=== PATIENT | female | born 1930 | race Caucasian/White ===

== ENCOUNTER 2018-04-01 19:29 | Observation (INO) ==
--- NOTE | 2018-04-01 19:59 | ED ---
HPI General Chief Complaint: Fall Stated Complaint: Fall Time Seen by Provider: 04/01/18 19:39 Source: patient Limitations: no limitations History of Present Illness HPI Narrative: Patient is an 88-year-old female who presents after a fall at home. She states that she was walking in the driveway when she fell onto her face. She does not know if she tripped or slipped prior to the fall. She denies chest pain, dyspnea, back pain, abdominal pain. She is not on blood thinners. complaint: fall Fall from: standing Place fall occurred: home and street Loss of consciousness: unsure Prolonged down time: no Location of injury: head and face Quality: dull Related Data Home Medications Medication Instructions Recorded Confirmed Unable to Obtain Home Meds 04/01/18 04/01/18 Allergies Allergy/AdvReac Type Severity Reaction Status Date / Time No Known Allergies Allergy Verified 04/01/18 21:53 Review of Systems ROS: all other systems reviewed are negative [facility] Medical History Medical History Asthma (Acute) HTN (hypertension) (Acute) Social History Social History Substance History: No History of Abuse Second Hand Smoke Exposure: No Smoking Status: Never smoker How Often Do You Have a Drink Containing Alcohol: Never Recent Travel in [facility] within the Last 8 Weeks: No Recent Out of Country Travel within the Last 8 Weeks: No Exam Narrative Exam Narrative: GENERAL: Elderly female with obvious trauma to the face SKIN: Focused skin assessment warm/dry. HEAD: Normocephalic. Dried blood on much of the face with swelling to most of the face primarily on the right side with extensive bruising. No active hemorrhage seen at this time. No septal hematoma. EYES: Pupils equal and round. No scleral icterus. No injection or drainage. Extraocular movements intact. ENT: Mucous membranes pink and moist. NECK: Trachea midline. No JVD. CARDIOVASCULAR: Regular rate and rhythm. No murmur appreciated. RESPIRATORY: No accessory muscle use. Clear to auscultation. Breath sounds equal bilaterally. GASTROINTESTINAL: Abdomen soft, non-tender, nondistended. Hepatic and splenic margins not palpable. MUSCULOSKELETAL: No obvious deformities. No clubbing. No cyanosis. No edema. NEUROLOGICAL: Awake and alert. No obvious cranial nerve deficits. Motor grossly within normal limits. Normal speech. PSYCHIATRIC: Appropriate mood and affect; insight and judgment normal. Course Initial Documented Vital Signs Pulse Rate 69 04/01/18 19:35 Respiratory Rate 20 04/01/18 19:35 Blood Pressure 153/74 H 04/01/18 19:35 Pulse Oximetry 100 04/01/18 19:35 Last Documented Vital Signs Pulse Rate 70 04/01/18 23:30 Respiratory Rate 18 04/01/18 23:30 Blood Pressure 137/63 04/01/18 23:30 Pulse Oximetry 95 04/01/18 23:30 Sign Out Sign Out Data: Patient Sign Out occurred on 04/01/18 at 20:26. Patient's care was discussed, and care was transferred from Etelvina Mo MD to Ted Bradshaw MD. Sign Out Comment: Imaging and labs pending. Dispo per results/re-eval. Last updated by Etelvina Mo MD at 04/01/18 20:22 Post-Handoff Eval: Reviewed findings. Reviewed CT findings with family. Spoke with Dr. Jasso, with OMFS. Fractures likely nonoperative. Can follow-up as an outpatient. Will get CT scans on CD. Patient still with significant pain, given age, need for opioid analgesics, pre-existing gait instability, would recommend observation and pain control, possible PT evaluation, likely discharge in a.m. if doing well. Medical Decision Making MDM Narrative Medical decision making narrative: Is an 88-year-old female who presents after she fell onto her face. He is obvious trauma to her face is neurologically intact. CTs pending at time of checkup. Medical Screen Exam Complete: Yes Emergency Medical Condition: Yes Lab Data Result diagrams: 04/01/18 19:54 04/01/18 19:54 Lab Results 04/01/18 04/01/18 04/01/18 Range/Units 19:54 19:54 19:54 WBC 7.2 (4.0-11.0) th/mm3 RBC 3.88 L (4.00-5.30) mil/mm3 Hgb 12.3 (11.6-15.3) gm/dL Hct 37.2 (35.0-46.0) % MCV 95.7 (80.0-100.0) fL MCH 31.7 (27.0-34.0) pg MCHC 33.1 (32.0-36.0) % RDW 13.3 (11.6-17.2) % Plt Count 258 (150-450) th/mm3 MPV 7.3 (7.0-11.0) fL Neut % (Auto) 64.7 (16.0-70.0) % Lymph % (Auto) 23.8 (9.0-44.0) % [place] % (Auto) 9.1 H (0.0-8.0) % Eos % (Auto) 1.5 (0.0-4.0) % Baso % (Auto) 0.9 (0.0-2.0) % Neut # (Auto) 4.7 (1.8-7.7) th/mm3 Lymph # (Auto) 1.7 (1.0-4.8) th/mm3 [place] # (Auto) 0.7 (0.0-0.9) th/mm3 Eos # (Auto) 0.1 (0.0-0.4) th/mm3 Baso # (Auto) 0.1 (0.0-0.2) th/mm3 WBC Differential . Differential Comment Auto diff final PT 10.3 (9.8-11.6) sec INR 1.0 Ratio APTT 21.9 L (24.3-30.1) sec Sodium 139 (136-145) meq/L Potassium 3.9 (3.5-5.1) meq/L Chloride 104 (98-107) meq/L Carbon Dioxide 23.7 (21.0-32.0) meq/L Anion Gap 11 (5-15) meq/L BUN 33 H (7-18) mg/dL Creatinine 0.78 (0.50-1.00) mg/dL Estimated GFR 70 L (>89) mL/min Random Glucose 102 (74-106) mg/dL Calcium 8.7 (8.5-10.1) mg/dL Troponin I Less than 0.02 L (0.02-0.05) ng/mL Urine Color (Yellw/Straw) Urine Clarity (Clear) Urine pH (5.0-8.5) Ur Specific [place] (1.002-1.035) Urine Protein (Neg-Trace) mg/dL Urine Glucose (UA) (Negative) mg/dL Urine Ketones (Negative) mg/dL Urine Occult Blood (Negative) Urine Nitrate (Negative) Urine Bilirubin (Negative) Urine Urobilinogen (Less than 2) mg/dL Ur Leukocyte Esterase (Negative) Urine RBC (0-3) /hpf Urine WBC (0-5) /hpf Ur Squamous Epith Cells (0-5) /hpf Urine Bacteria (None) /hpf Micro UA Comment Ur Microscopic Review Urine Culture Comments Blood Type Blood Type Recheck Antibody Screen 04/01/18 04/01/18 Range/Units 19:54 21:38 WBC (4.0-11.0) th/mm3 RBC (4.00-5.30) mil/mm3 Hgb (11.6-15.3) gm/dL Hct (35.0-46.0) % MCV (80.0-100.0) fL MCH (27.0-34.0) pg MCHC (32.0-36.0) % RDW (11.6-17.2) % Plt Count (150-450) th/mm3 MPV (7.0-11.0) fL Neut % (Auto) (16.0-70.0) % Lymph % (Auto) (9.0-44.0) % [place] % (Auto) (0.0-8.0) % Eos % (Auto) (0.0-4.0) % Baso % (Auto) (0.0-2.0) % Neut # (Auto) (1.8-7.7) th/mm3 Lymph # (Auto) (1.0-4.8) th/mm3 [place] # (Auto) (0.0-0.9) th/mm3 Eos # (Auto) (0.0-0.4) th/mm3 Baso # (Auto) (0.0-0.2) th/mm3 WBC Differential Differential Comment PT (9.8-11.6) sec INR Ratio APTT (24.3-30.1) sec Sodium (136-145) meq/L Potassium (3.5-5.1) meq/L Chloride (98-107) meq/L Carbon Dioxide (21.0-32.0) meq/L Anion Gap (5-15) meq/L BUN (7-18) mg/dL Creatinine (0.50-1.00) mg/dL Estimated GFR (>89) mL/min Random Glucose (74-106) mg/dL Calcium (8.5-10.1) mg/dL Troponin I (0.02-0.05) ng/mL Urine Color Yellow (Yellw/Straw) Urine Clarity Clear (Clear) Urine pH 7.0 (5.0-8.5) Ur Specific [place] 1.015 (1.002-1.035) Urine Protein Negative (Neg-Trace) mg/dL Urine Glucose (UA) Negative (Negative) mg/dL Urine Ketones Trace H (Negative) mg/dL Urine Occult Blood Negative (Negative) Urine Nitrate Positive H (Negative) Urine Bilirubin Negative (Negative) Urine Urobilinogen Less than 2 (Less than 2) mg/dL Ur Leukocyte Esterase Negative (Negative) Urine RBC 1 (0-3) /hpf Urine WBC 1 (0-5) /hpf Ur Squamous Epith Cells <1 (0-5) /hpf Urine Bacteria Many H (None) /hpf Micro UA Comment Cath-culture ind Ur Microscopic Review Not Reportable Urine Culture Comments Cath-cult indicated Blood Type O Positive Blood Type Recheck Antibody Screen Negative Imaging Data Radiologist's impression: Cervical Spine CT 04/01/18 19:44 CONCLUSION: 1. Intact cervical spine. 2. Degenerative changes as above. Chest X-Ray 04/01/18 19:44 CONCLUSION: No acute abnormality demonstrated. Suspected chronic bilateral rotator cuff tears. Face CT 04/01/18 19:44 CONCLUSION: 1. Comminuted and mildly depressed/rightward deviated fracturing of the nose. 2. Nondisplaced fracturing of the left maxilla. 3. Depressed and comminuted fracture of the anterior wall of the right maxillary air cell. Nondisplaced fracturing of the posterior wall. 4. Comminuted, minimally displaced fracturing of the inferior wall the right orbit. Head CT 04/01/18 19:44 CONCLUSION: 1. No bleed or other acute intracranial abnormality. 2. Chronic white matter changes. . Pelvis X-Ray 04/01/18 19:44 CONCLUSION: Intact pelvis. Discharge Plan Discharge Disposition Patient Disposition: 30 Still Patient Physicians Team ED Provider: Ted Bradshaw Primary Care Provider: UNKNOWN, Rxs /Orders / Referrals /Forms Prescriptions: No Action Unable to Obtain Home Meds RF: 0 Discharge Interventions Interventions: Vital Signs Last Done: 04/01/18 23:30 Status ED Status: With Doctor
[2018-04-01 20:06] LABS: Baso # (Auto) 0.1 th/mm3 (0.0-0.2); Baso % (Auto) 0.9 % (0.0-2.0); Eos # (Auto) 0.1 th/mm3 (0.0-0.4); Eos % (Auto) 1.5 % (0.0-4.0); Hematocrit 37.2 % (35.0-46.0); Hemoglobin 12.3 gm/dL (11.6-15.3); Lymph # (Auto) 1.7 th/mm3 (1.0-4.8); Lymph % (Auto) 23.8 % (9.0-44.0); Mean Corpuscular HGB Conc 33.1 % (32.0-36.0); Mean Corpuscular Hemoglobin 31.7 pg (27.0-34.0); Mean Corpuscular Volume 95.7 fL (80.0-100.0); Mean Platelet Volume 7.3 fL (7.0-11.0); Mono # (Auto) 0.7 th/mm3 (0.0-0.9); Mono % (Auto) 9.1 % (0.0-8.0); Neut # (Auto) 4.7 th/mm3 (1.8-7.7); Neut % (Auto) 64.7 % (16.0-70.0); Platelet Count 258 th/mm3 (150-450); Red Blood Count 3.88 mil/mm3 (4.00-5.30); Red Cell Distribution Width 13.3 % (11.6-17.2); White Blood Count 7.2 th/mm3 (4.0-11.0)
--- NOTE | 2018-04-01 20:11 | XR ---
EXAM DATE: 04/01/2018 8:04 PM EDT AGE/SEX: 88 years / Female INDICATIONS: Evaluate chest for trauma, fell CLINICAL DATA: This is the patient's initial encounter. Patient reports that signs and symptoms have been present for 1 day and indicates a pain score of Nonresponsive. MEDICAL/SURGICAL HISTORY: Non-responsive. Non-responsive. COMPARISON: No prior exams available for comparison. FINDINGS: A single AP view of the chest demonstrates the lungs to be symmetrically aerated without evidence of mass, infiltrate or effusion. The cardiomediastinal contours are unremarkable. Osseous structures a re grossly intact. Chronic bilateral rotator cuff tears are suspected with narrowing of the subacromial spaces noted. CONCLUSION: No acute abnormality demonstrated. Suspected chronic bilateral rotator cuff tears. Electronically signed by: Art Grove MD 04/01/2018 8:09 PM EDT
--- NOTE | 2018-04-01 20:13 | XR ---
EXAM DATE: 04/01/2018 8:06 PM EDT AGE/SEX: 88 years / Female INDICATIONS: Evaluate pelvis for trauma, fell CLINICAL DATA: This is the patient's initial encounter. Patient reports that signs and symptoms have been present for 1 day and indicates a pain score of Nonresponsive. MEDICAL/SURGICAL HISTORY: Non-responsive. Non-responsive. COMPARISON: No prior exams available for comparison. FINDINGS: The pelvis is intact and has normal morphology. 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 Also mild osteoarthritis of the pubic symphysis and bilateral sacroiliac joints. CONCLUSION: Intact pelvis. Electronically signed by: Art Grove MD 04/01/2018 8:11 PM EDT
[2018-04-01 20:14] LABS: Activated Partial Thrombo Time 21.9 sec (24.3-30.1); Prothrombin Time 10.3 sec (9.8-11.6)
[2018-04-01 20:29] LABS: Anion Gap 11 meq/L (5-15); Blood Urea Nitrogen 33 mg/dL (7-18); Calcium 8.7 mg/dL (8.5-10.1); Carbon Dioxide 23.7 meq/L (21.0-32.0); Chloride 104 meq/L (98-107); Glomerular Filtration Rate 70 mL/min (>89); Glucose,Random 102 mg/dL (74-106); Potassium 3.9 meq/L (3.5-5.1); Sodium 139 meq/L (136-145)
--- NOTE | 2018-04-01 20:29 | CT ---
EXAM DATE: 04/01/2018 8:21 PM EDT AGE/SEX: 88 years / Female INDICATIONS: Fall facial abrasions CLINICAL DATA: This is the patient's initial encounter. Patient reports that signs and symptoms have been present for 1 day and indicates a pain score of 6/10. MEDICAL/SURGICAL HISTORY: Asthma. None. RADIATION DOSE: 21.96 CTDI (mGy) COMPARISON: No prior exams available for comparison. TECHNIQUE: Contiguous images in the axial and coronal planes were obtained using helical multirow de tector technique. Using automated exposure control and adjustment of the mA and/or kV according to p atient size, radiation dose was kept as low as reasonably achievable to obtain optimal diagnostic marlee lity images. DICOM format image data is available electronically for review and comparison. FINDINGS: There is a comminuted, mildly depressed fracturing of the nose. The nose is slightly deviated to the right. There is a fracture of the left side of the maxilla, just lateral to the anterior process and does ex tend into the anterior wall of the left maxillary sinus, all nondisplaced. Comminuted and depressed fracturing seen of the anterior wall of the right maxillary sinus. There is nondisplaced fracturing of the posterior wall. There is comminuted but minimally displaced fracturing of the inferior wall the right orbit. No extra ocular muscle entrapment. There is blood in the right maxillary air cell. CONCLUSION: 1. Comminuted and mildly depressed/rightward deviated fracturing of the nose. 2. Nondisplaced fracturing of the left maxilla. 3. Depressed and comminuted fracture of the anterior wall of the right maxillary air cell. Nondispla abida fracturing of the posterior wall. 4. Comminuted, minimally displaced fracturing of the inferior wall the right orbit. Electronically signed by: Art Grove MD 04/01/2018 8:28 PM EDT
--- NOTE | 2018-04-01 20:31 | CT ---
EXAM DATE: 04/01/2018 8:12 PM EDT AGE/SEX: 88 years / Female INDICATIONS: Fall facial abrasions CLINICAL DATA: This is the patient's initial encounter. Patient reports that signs and symptoms have been present for 1 day and indicates a pain score of 7/10. MEDICAL/SURGICAL HISTORY: Asthma. None. RADIATION DOSE: 56.35 CTDI (mGy) COMPARISON: No prior exams available for comparison. TECHNIQUE: CT of the head without contrast. Using automated exposure control and adjustment of the mA and/or kV according to patient size, radiation dose was kept as low as reasonably achievable to ob tain optimal diagnostic quality images. DICOM format image data is available electronically for revi ew and comparison. FINDINGS: Cerebrum: The ventricles are normal for age. No evidence of midline shift, mass lesion, hemorrhage or acute infarction. No extraaxial fluid collections are seen. There is chronic low-attenuation in t he periventricular white matter. Posterior Fossa: The cerebellum and brainstem are intact. The 4th ventricle is midline. The cerebe llopontine angle is unremarkable. Extracranial: The visualized portion of the orbits is intact. Skull: The calvaria is intact. No evidence of skull fracture. CONCLUSION: 1. No bleed or other acute intracranial abnormality. 2. Chronic white matter changes. . Electronically signed by: Art Grove MD 04/01/2018 8:29 PM EDT
--- NOTE | 2018-04-01 20:32 | CT ---
EXAM DATE: 04/01/2018 8:18 PM EDT AGE/SEX: 88 years / Female INDICATIONS: Fall facial abrasions CLINICAL DATA: This is the patient's initial encounter. Patient reports that signs and symptoms have been present for 1 day and indicates a pain score of 6/10. MEDICAL/SURGICAL HISTORY: Asthma. . RADIATION DOSE: 15.1 CTDI (mGy) COMPARISON: No prior exams available for comparison. TECHNIQUE: Contiguous axial images were obtained using helical multirow detector technique. The vol umetric data was post-processed with multiplanar reconstruction in oblique axial, sagittal, and coron al planes. Using automated exposure control and adjustment of the mA and/or kV according to patient s ize, radiation dose was kept as low as reasonably achievable to obtain optimal diagnostic quality geo ges. DICOM format image data is available electronically for review and comparison. FINDINGS: Cervical spine alignment is within normal limits. Vertebral bodies have normal height. No cortical br eak or trabecular disruption. Prevertebral soft tissues are within normal limits. There is moderate uncovertebral and facet osteoarthritis throughout. There is multilevel disc space n arrowing, severe at C5/C6, moderate to severe at C3/C4 and C4/C5 and mild at the other levels. CONCLUSION: 1. Intact cervical spine. 2. Degenerative changes as above. Electronically signed by: Art Grove MD 04/01/2018 8:31 PM EDT
[2018-04-01 21:53] LABS: Bacteria,Urine Many /hpf; Bilirubin,Urine Negative (Negative); Clarity,Urine Clear (Clear); Color,Urine Yellow (Yellw/Straw); Glucose,Urine (UA) Negative (Negative); Leukocyte Esterase,Urine Negative (Negative); Nitrite,Urine Positive (Negative); Specific Gravity,Urine 1.015 (1.002-1.035); Squamous Epithelial Cell,Urine <1 /hpf (0-5)
[2018-04-01] MEDS ORDERED: Morphine Inj 4 MG/ML Vial IV.PUSH ONE (21:54)
[2018-04-01] MEDS ORDERED: Acetaminophen 325 MG Tablet PO PRN (23:38)
[2018-04-02] MEDS ORDERED: Heparin - SQ 10,000 UNITS/ML Vial SQ SCH
--- NOTE | 2018-04-02 00:43 | P.HP ---
History of Present Illness Service: [facility] Primary Care Physician: UNKNOWN History of Present Illness: 88-year-old female with a past medical history significant for asthma and hypertension presents to the emergency department for evaluation of a fall. The patient was walking to dinner when she lost her footing on uneven ground and fell directly onto her face. There is a questionable period of a few seconds of loss of consciousness. No seizure-like activity. The fall was witnessed by her family. The patient denies any preceding dizziness or lightheadedness. No chest pain or shortness of breath. No abdominal pain. No nausea/vomiting/diarrhea. No fevers/chills. No lateralizing signs/symptoms. No weakness. 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 - Medical History Medical History: Medical History (Last Reviewed 04/02/18 @ 00:19 by Lili Foote MD) Asthma Fall HTN (hypertension) - Surgical History Surgical History: Surgical History (Last Updated 04/02/18 @ 00:19 by Lili Foote MD) No history of previous surgery - Family History Family History: Family History (Last Updated 04/02/18 @ 00:19 by Lili Foote MD) Other Coronary artery disease - Tobacco History Second Hand Smoke Exposure: No Tobacco Use In Past 30 Days: No Smoking Status: Never smoker - Alcohol History How Often Do You Have a Drink Containing Alcohol: Never - Substance Use History Substance History: No History of Abuse - Travel History Recent Travel in the [place] Within the Last 8 Weeks: No Recent Travel Out of the Country Within the Last 8 Weeks: No - Immunization History Tetanus Immunization: <5 Years Hx Influenza Vaccine This Season: Unable to Assess Medications and Allergies Active Medications: Active Medications Acetaminophen (Tylenol) 650 mg PO Q4H PRN PRN Reason: Temp > 100.4 Heparin Sodium (Porcine) (Heparin Inj) 5,000 units SQ Q8H [place] Morphine Sulfate (Morphine Inj) 4 mg IV.PUSH Q4H PRN PRN Reason: pain 6-10 Ondansetron HCl (Zofran Inj) 4 mg IV.PUSH Q6H PRN PRN Reason: NAUSEA OR VOMITING Sodium Chloride (Ns Flush) 2 ml IV.FLUSH PRN PRN PRN Reason: FLUSH AFTER USING IV ACCESS Allergies Allergy/AdvReac Type Severity Reaction Status Date / Time No Known Allergies Allergy Verified 04/01/18 21:53 Home Medications Medication Instructions Recorded Confirmed Type Unable to Obtain Home Meds 04/01/18 04/01/18 History Exam Vital signs: Vital Signs 04/01/18 19:35 04/01/18 23:30 Pulse Rate 69 70 Respiratory Rate 20 18 Blood Pressure 153/74 H 137/63 Pulse Oximetry 100 95 Intake & Output 04/01/18 04/01/18 04/02/18 06:59 18:59 06:59 Weight 45.359 kg Narrative: Gen.: No acute distress Head: Normocephalic. Right side of patient's face exquisitely tender and swollen with blood encrusted nares. EENT: Pupils equal round and reactive to light. Nose without drainage. Airway intact. Throat without injection. Cardiovascular: Regular rate and rhythm. No murmurs, rubs or gallops. Respiratory: Lungs clear to auscultation bilaterally. No wheezes or rhonchi. Abdomen: Soft, nontender, nondistended. No peritoneal signs. Musculoskeletal: No gross deformities. No edema. Skin: No obvious rashes or erythema. Neuro: Sensory and motor grossly intact. Cranial nerves II through XII grossly intact. Results - Labs CBC & Chem 7: 04/01/18 19:54 04/01/18 19:54 Labs: Laboratory Results - last 24 hr 04/01/18 04/01/18 04/01/18 19:54 19:54 19:54 WBC 7.2 RBC 3.88 L Hgb 12.3 Hct 37.2 MCV 95.7 MCH 31.7 MCHC 33.1 RDW 13.3 Plt Count 258 MPV 7.3 Neut % (Auto) 64.7 Lymph % (Auto) 23.8 [place] % (Auto) 9.1 H Eos % (Auto) 1.5 Baso % (Auto) 0.9 Neut # (Auto) 4.7 Lymph # (Auto) 1.7 [place] # (Auto) 0.7 Eos # (Auto) 0.1 Baso # (Auto) 0.1 WBC Differential . Differential Comment Auto diff final PT 10.3 INR 1.0 APTT 21.9 L Sodium 139 Potassium 3.9 Chloride 104 Carbon Dioxide 23.7 Anion Gap 11 BUN 33 H Creatinine 0.78 Estimated GFR 70 L Random Glucose 102 Calcium 8.7 Troponin I Less than 0.02 L Urine Color Urine Clarity Urine pH Ur Specific [place] Urine Protein Urine Glucose (UA) Urine Ketones Urine Occult Blood Urine Nitrate Urine Bilirubin Urine Urobilinogen Ur Leukocyte Esterase Urine RBC Urine WBC Ur Squamous Epith Cells Urine Bacteria Micro UA Comment Ur Microscopic Review Urine Culture Comments Blood Type Blood Type Recheck Antibody Screen 04/01/18 04/01/18 19:54 21:38 WBC RBC Hgb Hct MCV MCH MCHC RDW Plt Count MPV Neut % (Auto) Lymph % (Auto) [place] % (Auto) Eos % (Auto) Baso % (Auto) Neut # (Auto) Lymph # (Auto) [place] # (Auto) Eos # (Auto) Baso # (Auto) WBC Differential Differential Comment PT INR APTT Sodium Potassium Chloride Carbon Dioxide Anion Gap BUN Creatinine Estimated GFR Random Glucose Calcium Troponin I Urine Color Yellow Urine Clarity Clear Urine pH 7.0 Ur Specific [place] 1.015 Urine Protein Negative Urine Glucose (UA) Negative Urine Ketones Trace H Urine Occult Blood Negative Urine Nitrate Positive H Urine Bilirubin Negative Urine Urobilinogen Less than 2 Ur Leukocyte Esterase Negative Urine RBC 1 Urine WBC 1 Ur Squamous Epith Cells <1 Urine Bacteria Many H Micro UA Comment Cath-culture ind Ur Microscopic Review Not Reportable Urine Culture Comments Cath-cult indicated Blood Type O Positive Blood Type Recheck Antibody Screen Negative - Imaging Impressions Cervical Spine CT 04/01/18 19:44 CONCLUSION: 1. Intact cervical spine. 2. Degenerative changes as above. Chest X-Ray 04/01/18 19:44 CONCLUSION: No acute abnormality demonstrated. Suspected chronic bilateral rotator cuff tears. Face CT 04/01/18 19:44 CONCLUSION: 1. Comminuted and mildly depressed/rightward deviated fracturing of the nose. 2. Nondisplaced fracturing of the left maxilla. 3. Depressed and comminuted fracture of the anterior wall of the right maxillary air cell. Nondisplaced fracturing of the posterior wall. 4. Comminuted, minimally displaced fracturing of the inferior wall the right orbit. Head CT 04/01/18 19:44 CONCLUSION: 1. No bleed or other acute intracranial abnormality. 2. Chronic white matter changes. . Pelvis X-Ray 04/01/18 19:44 CONCLUSION: Intact pelvis. Caprini VTE Risk Assessment Caprini VTE Risk Assessment: Moderate/High Risk (score >= 2) Caprini Risk Assessment Model: Point Value = 1 Point Value = 2 Point Value = 3 Point Value = 5 Age 41-60 Minor surgery BMI > 25 kg/m2 Swollen legs Varicose veins or History of unexplained or recurrent spontaneous Oral contraceptives or hormone replacement Sepsis (< 1 month) Serious lung disease, including pneumonia (< 1 month) Abnormal pulmonary function Acute myocardial infarction Congestive heart failure (< 1 month) History of inflammatory bowel disease Medical patient at bed rest Age 61-74 Arthroscopic surgery Major open surgery (> 45 min) Laparoscopic surgery (> 45 min) Malignancy Confined to bed (> 72 hours) Immobilizing plaster cast Central venous access Age >= 75 History of VTE Family history of VTE Factor V Leiden Prothrombin [id number] Lupus anticoagulant Anticardiolipin antibodies Elevated serum homocysteine Heparin-induced thrombocytopenia Other congenital or acquired thrombophilia Stroke (< 1 month) Elective arthroplasty Hip, pelvis, or leg fracture Acute spinal cord injury (< 1 month) Prophylaxis Regimen: Total Risk Factor Score Risk Level Prophylaxis Regimen 0-1 Low Early ambulation 2 Moderate Order ONE of the following: *Sequential Compression Device (SCD) *Heparin 5000 units SQ BID 3-4 Higher Order ONE of the following medications: *Heparin 5000 units SQ TID *Enoxaparin/Lovenox 40 mg SQ daily (WT < 150 kg, CrCl > 30 mL/min) *Enoxaparin/Lovenox 30 mg SQ daily (WT < 150 kg, CrCl > 10-29 mL/min) *Enoxaparin/Lovenox 30 mg SQ BID (WT < 150 kg, CrCl > 30 mL/min) AND/OR *Sequential Compression Device (SCD) 5 or more Highest Order ONE of the following medications: *Heparin 5000 units SQ TID (Preferred with Epidurals) *Enoxaparin/Lovenox 40 mg SQ daily (WT < 150 kg, CrCl > 30 mL/min) *Enoxaparin/Lovenox 30 mg SQ daily (WT < 150 kg, CrCl > 10-29 mL/min) *Enoxaparin/Lovenox 30 mg SQ BID (WT < 150 kg, CrCl > 30 mL/min) AND *Sequential Compression Device (SCD) Assessment and Plan - Plan Assessment/plan: 1. Multiple facial fractures Face CT significant for comminuted deviated fracture of the nose, nondisplaced fracture of the left maxilla, depressed and comminuted fracture of the anterior wall of the right maxillary air cell and nondisplaced fracturing of the posterior wall with a comminuted minimally displaced fracturing of the anterior wall of the right orbit. OMFS consulted, appreciate assistance Morphine for pain 2. Hypertension Continue home amlodipine 3. Depression/anxiety Continue home medication FEN N.p.o. until seen by OMFS Electrolytes: Urine replete as needed NS at 70 cc/hour Holding pharmacologic anticoagulation until cleared by OMFS
[2018-04-02 01:09] VITALS: RESP 16
[2018-04-02] MEDS: Morphine Inj 4 MG/ML Vial IV.PUSH PRN ×3 (01:23→15:45)
[2018-04-02] MEDS: Sod Chloride 0.9% Inj 1,000 ML IV.CONT SCH ×2 (01:23→15:50)
[2018-04-02 07:50] LABS: Baso % (Auto) 0.5 % (0.0-2.0); Eos % (Auto) 0.1 % (0.0-4.0); Hematocrit 31.9 % (35.0-46.0); Hemoglobin 10.8 gm/dL (11.6-15.3); Lymph % (Auto) 11.9 % (9.0-44.0); Mean Corpuscular HGB Conc 33.7 % (32.0-36.0); Mean Corpuscular Hemoglobin 32.3 pg (27.0-34.0); Mean Corpuscular Volume 95.8 fL (80.0-100.0); Mean Platelet Volume 7.6 fL (7.0-11.0); Mono # (Auto) 0.6 th/mm3 (0.0-0.9); Mono % (Auto) 6.9 % (0.0-8.0); Neut # (Auto) 6.9 th/mm3 (1.8-7.7); Neut % (Auto) 80.6 % (16.0-70.0); Platelet Count 225 th/mm3 (150-450); Red Blood Count 3.33 mil/mm3 (4.00-5.30); Red Cell Distribution Width 13.3 % (11.6-17.2); White Blood Count 8.5 th/mm3 (4.0-11.0)
[2018-04-02 08:18] LABS: Calcium 8.2 mg/dL (8.5-10.1); Carbon Dioxide 26.7 meq/L (21.0-32.0); Potassium 4.4 meq/L (3.5-5.1)
[2018-04-02] MEDS ORDERED: amLODIPine 5 MG Tablet PO SCH (09:15)
[2018-04-02] MEDS ORDERED: Citalopram 20 MG Tablet PO SCH (09:15)
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
--- NOTE | 2018-04-02 15:57 | P.CON ---
History of Present Illness Service: Oral & Maxillofacial Surgery Consult date: 04/02/18 Requesting Physician: Abhishek Edouard Reason for Consult: Multiple facial fractures Primary Care Provider: Jerry Cardoza MD Chief Complaint: Facial pain after fall History of Present Illness: 88-year-old female with a history of hypertension and asthma presents to [facility] following mechanical fall. Patient reports that she tripped on the driveway at a relative's house in [place] and struck the right side of her face. She is unsure if she had a loss of consciousness at the time. Currently she denies any changes in her vision, pain with ocular movements, changes in her occlusion, difficulty breathing through her nose. She reports discomfort in the right malar region and infraorbital regions. Review of Systems Constitutional: Denies chills, Denies fever(s) Eyes: Denies blurry vision, Denies change in vision, Denies double vision, Denies loss of vision Ears, Nose, Mouth, and Throat: Reports dental pain, Reports facial pain, Reports mouth pain, Reports nasal discharge, Reports nasal trauma, Reports nose pain, Reports sinus pain, Denies difficulty swallowing, Denies nasal obstruction , Denies tongue swelling Cardiovascular: Denies chest pain Respiratory: Denies shortness of breath PMFSH - History History Provided By: Patient, Family Member - Medical History Medical History: Medical History (Last Reviewed 04/02/18 @ 09:25 by Nakia Thurman) Asthma Fall HTN (hypertension) - Surgical History Surgical History: Surgical History (Last Reviewed 04/02/18 @ 09:25 by Nakia Thurman) No history of previous surgery - Family History Family History: Family History (Last Reviewed 04/02/18 @ 09:25 by Nakia Thurman) Other Coronary artery disease - Tobacco History Second Hand Smoke Exposure: No Tobacco Use In Past 30 Days: No Smoking Status: Never smoker - Alcohol History How Often Do You Have a Drink Containing Alcohol: Never - Substance Use History Substance History: No History of Abuse - Travel History Recent Travel in the [place] Within the Last 8 Weeks: No Recent Travel Out of the Country Within the Last 8 Weeks: No - Immunization History Tetanus Immunization: <5 Years Hx Influenza Vaccine This Season: Unable to Assess Medications and Allergies Active Medications: Active Medications Acetaminophen (Tylenol) 650 mg PO Q4H PRN PRN Reason: Temp > 100.4 Amlodipine Besylate (Norvasc) 2.5 mg PO DAILY [facility] Last Admin: 04/02/18 11:27 Dose: 2.5 mg Citalopram Hydrobromide (Celexa) 20 mg PO DAILY [facility] Last Admin: 04/02/18 11:27 Dose: 20 mg Clonazepam (Klonopin) 0.5 mg PO DAILY [facility] Sodium Chloride (Ns Inj) 1,000 mls @ 70 mls/hr IV.CONT .[id number] [facility] Last Admin: 04/02/18 01:23 Dose: 70 mls/hr Miscellaneous (Pill Splitter) 1 each OTHER UNSCH [facility] Morphine Sulfate (Morphine Inj) 4 mg IV.PUSH Q4H PRN PRN Reason: pain 6-10 Last Admin: 04/02/18 06:21 Dose: 4 mg Ondansetron HCl (Zofran Inj) 4 mg IV.PUSH Q6H PRN PRN Reason: NAUSEA OR VOMITING Sodium Chloride (Ns Flush) 2 ml IV.FLUSH PRN PRN PRN Reason: FLUSH AFTER USING IV ACCESS Allergies Allergy/AdvReac Type Severity Reaction Status Date / Time No Known Allergies Allergy Verified 04/01/18 21:53 Home Medications Medication Instructions Recorded Confirmed Type amlodipine 2.5 mg PO DAILY 04/02/18 04/02/18 History citalopram 20 mg PO DAILY 04/02/18 04/02/18 History clonazepam 0.5 mg PO DAILY 04/02/18 04/02/18 History montelukast 10 mg PO QPM 04/02/18 04/02/18 History Physical Exam Vital signs: Vital Signs 04/01/18 19:35 04/01/18 23:30 04/02/18 00:00 Temperature 97.9 F Pulse Rate 69 70 69 Respiratory Rate 20 18 16 Blood Pressure 153/74 H 137/63 170/73 H Pulse Oximetry 100 95 95 04/02/18 03:43 04/02/18 08:00 04/02/18 08:28 Temperature 97.6 F 98.3 F Pulse Rate 81 63 Respiratory Rate 16 16 Blood Pressure 171/68 H 136/63 Pulse Oximetry 95 94 L 97 04/02/18 12:00 Temperature 98.3 F Pulse Rate 74 Respiratory Rate 16 Blood Pressure 140/65 Pulse Oximetry 92 L Intake & Output 04/01/18 04/02/1804/02/18 18:59 06:59 18:59 Intake Total 420 / 420 Output Total 250 / 250 Balance 170 / 170 Weight 45.359 kg Intake: Other 420 / 420 Output: Urine Amount (Catheter) 250 / 250 Indwelling Urethral Catheter 250 / 250 Other: Other Intake Source Saline Solution Weight On Admission 45.36 kg Narrative: General: Elderly female, well-developed, in no apparent distress. Neurological: Alert, oriented, in NAD. CNV and CNVII intact bilaterally. HEENT: Head/Face: Right sided facial edema. Multiple scattered abrasions including dorsum of nose, right mental region, and right malar region. Scalp nonboggy with no palpable step-offs or deformities. Right periorbital ecchymosis. Midface stable. No palpable step-offs along inferior mandibular border. Eyes/Orbits: PERRL. EOMI. Right subconjunctival hemorrhage Nose: External nose is rotated with mild crepitus over the nasal bridge. No septal hematoma. No rhinorrhea or epistaxis. Hemorrhagic crusting in the bilateral nares. TMJ/Mandible: LIGIA > 4cm. Occlusion stable and repeatable. Class I occlusion. Oral Cavity/Oropharynx: Ecchymosis of the right maxillary vestibule. Laceration between teeth #9 and #10 with grade II mobility of teeth #8 and #9. Mandibular partial denture in place. Leroy class II fracture of tooth #9. Mucosa pink and well hydrated. Floor of mouth soft. Remainder of dentition is intact. Neck: Supple without cervical LAD or thyromegaly. Trachea midline. Edema of the right neck, non-tender to palpation. Cardiovascular: Regular rate Pulmonary: Normal work of breathing on room air. Extremities: Warm, well perfused. - Additional findings Additional findings: CT Face from 04/01/18 displays right anterior and posterior wall maxillary fractures, displaced with complete opacification of the right maxillary sinus, presumably from blood. Right inferior orbital rim fracture with minimal displacement. Nasal bone fractures. - Urinary Catheter Management Indwelling Urethral Catheter Cath placed during this visit: yes Reason for continuing: Chronic Urinary Retention Insertion date: 04/02/18 Insertion time: 03:19 Assessment and Plan - Assessment (1) Facial fracture due to fall Code(s): S02.92XA - Unspecified fracture of facial bones, initial encounter for closed fracture; W19.XXXA - Unspecified fall, initial encounter Status: Acute - Plan 88-year-old female with history of hypertension and asthma who presents with multiple facial fractures secondary to mechanical fall. Will manage fractures nonoperatively at this point. Patient may benefit from correction of nasal bone fractures if cosmetic or functional deformity remains once edema has decreased. Recommendations: Maintain sinus precautions for the next 2 weeks, no nose blowing, sneeze with an open mouth. Augmentin [id number] twice daily 1 week Soft, non-chew diet for the next 6-8 weeks Follow-up with general dentist after 6 weeks for evaluation and repair of anterior maxillary dentition. If desired, may follow-up with oral maxillofacial surgeon in home town for reevaluation of nasal bone fractures, would advise this be performed in the next 4 weeks. - Avoid contact to the face for the next 6-8 weeks -Please provide patient with disc of copy of CT face if she desires to be evaluated in her hometown in [place]. Okay to follow-up with me in 1 week if patient still is in [place] at [facility] [id number], .
[2018-04-02 16:21] VITALS: BP 127/60; PULSE 70; TEMP 97.5; O2SAT 91
[2018-04-03] MEDS ORDERED: clonazePAM 0.5 MG Tablet PO SCH (09:00)
--- NOTE | 2018-04-03 22:38 | ECG ---
Date Performed: 04/01/2018 Time Performed: 20:40:41 PTAGE: 88 years EKG: Sinus rhythm LEFT BUNDLE BRANCH BLOCK ABNORMAL ECG NO PREVIOUS TRACING DOCTOR: Rose Wilburn Interpretating Date/Time 04/03/2018 22:29:22
== END 2018-04-02 18:44 | disposition home or self-care (01) ==
LOC: NEPC 19:29 → NEDA 19:29 → NEPFCDU 04-02 00:11
PROVIDERS: ADMIT Hospitalist; ATTEND Hospitalist